=== PATIENT | female | born 1940 | race Caucasian/White ===

== ENCOUNTER 2018-07-24 23:04 | Observation (INO) ==
[2018-07-25 01:22] LABS: Baso # (Auto) 0.1 th/mm3 (0.0-0.2); Eos # (Auto) 0.1 th/mm3 (0.0-0.4); Eos % (Auto) 1.3 % (0.0-4.0); Hematocrit 34.9 % (35.0-46.0); Hemoglobin 12.4 gm/dL (11.6-15.3); Lymph # (Auto) 1.2 th/mm3 (1.0-4.8); Lymph % (Auto) 19.6 % (9.0-44.0); Mean Corpuscular HGB Conc 35.4 % (32.0-36.0); Mean Corpuscular Volume 104.5 fL (80.0-100.0); Mean Platelet Volume 7.2 fL (7.0-11.0); Mono # (Auto) 1.2 th/mm3 (0.0-0.9); Mono % (Auto) 19.5 % (0.0-8.0); Neut # (Auto) 3.7 th/mm3 (1.8-7.7); Neut % (Auto) 58.6 % (16.0-70.0); Platelet Count 247 th/mm3 (150-450); Red Blood Count 3.34 mil/mm3 (4.00-5.30); Red Cell Distribution Width 15.1 % (11.6-17.2); White Blood Count 6.2 th/mm3 (4.0-11.0)
[2018-07-25 01:34] LABS: Calcium 8.8 mg/dL (8.5-10.1); Carbon Dioxide 29.2 meq/L (21.0-32.0); INR 1.2 Ratio; Potassium 5.4 meq/L (3.5-5.1); Prothrombin Time 11.7 sec (9.8-11.6)
--- NOTE | 2018-07-25 01:53 | XR ---
EXAM DATE: 07/25/2018 1:48 AM EST AGE/SEX: 77 years / Female INDICATIONS: Shortness of breath. CLINICAL DATA: This is the patient's initial encounter. Patient reports that signs and symptoms have been present for 1 day and indicates a pain score of 0/10. MEDICAL/SURGICAL HISTORY: Non-responsive. Non-responsive. COMPARISON: . FINDINGS: Single AP view of the chest. The lungs are clear. Cardiomediastinal silhouette within nor mal limits. No evidence of pleural effusion or pneumothorax. CONCLUSION: No acute cardiopulmonary disease identified. Electronically signed by: Robert Doll MD 07/25/2018 1:51 AM EST
--- NOTE | 2018-07-25 01:56 | XR ---
EXAM DATE: 07/25/2018 1:51 AM EST AGE/SEX: 77 years / Female INDICATIONS: Right knee pain, swelling, and inability to straighten out. CLINICAL DATA: This is the patient's initial encounter. Patient reports that signs and symptoms have been present for 1 day and indicates a pain score of 10/10. MEDICAL/SURGICAL HISTORY: Non-responsive. Non-responsive. COMPARISON: . FINDINGS: 4 views of the right knee. Comminuted fracture of the distal femur is noted involving the distal meta physis and likely extending into the intercondylar region. There is impaction with up to 4 cm of bony overlap. Posterior displacement of the distal fragment measuring approximately 8 mm. Posterior angul ation of the distal fragment also noted. Large joint effusion. CONCLUSION: Comminuted impacted distal femur fracture. Electronically signed by: Robert Doll MD 07/25/2018 1:54 AM EST
--- NOTE | 2018-07-25 02:14 | ED ---
HPI General Chief Complaint: Extremity Injury, Lower Stated Complaint: Medical Time Seen by Provider: 07/24/18 23:57 Source: EMS Mode of arrival: EMS Limitations: other (Advanced dementia) History of Present Illness HPI Narrative: 77-year-old female came to the emergency room with history of injury to her right lower extremity by unknown mechanism. She is from senior living and has significant dementia. Patient was unable to give us any meaningful history. assisted did an x-ray of her femur and the diagnosis was impacted fracture of her distal femur. As per the senior living patient is bedbound. The nurse tried to contact her family and was unsuccessful to get any further history. The senior living staff who gave the report does not know the patient very well since this is her first night taking care of the patient. Related Data Home Medications Medication Instructions Recorded Confirmed amantadine HCl 100 mg PO DAILY 07/25/18 07/25/18 divalproex [Depakote] 1,000 mg PO HS 07/25/18 07/25/18 divalproex [Depakote] 500 mg PO DAILY 07/25/18 07/25/18 fenofibrate 160 mg PO HS 07/25/18 07/25/18 ferrous sulfate 325 mg PO TID 07/25/18 07/25/18 furosemide [Lasix] 40 mg PO DAILY 07/25/18 07/25/18 multivitamin 1 tab PO DAILY 07/25/18 07/25/18 Previous Rx's Medication Instructions Recorded calcium carbonate-vitamin D3 1 tab PO DAILY #30 tab 07/26/18 [Calcium 500 + D] potassium chloride 20 meq PO DAILY #0 tab 07/26/18 Allergies Allergy/AdvReac Type Severity Reaction Status Date / Time No Known Allergies Allergy Severe Uncoded 12/16/12 13:56 Review of Systems ROS Unobtainable ROS Unobtainable: unobtainable due to mental condition ROS: all other systems reviewed are negative [facility] Medical History Medical History Anxiety disorder, unspecified (Acute) Atelectasis (Acute) Bipolar disorder, unspecified (Acute) Chronic kidney disease (Acute) Edema, unspecified (Acute) Extrapyramidal and movement disorder, unspecified (Acute) GERD (gastroesophageal reflux disease) (Acute) Hyperlipidemia (Acute) Hypokalemia (Acute) Insomnia (Acute) Iron deficiency anemia (Acute) Schizophrenia, unspecified (Acute) Social History Social History Substance History: Unable to Obtain Smoking Status: Cognitive impairment How Often Do You Have a Drink Containing Alcohol: Unable to Obtain Recent Travel in [facility] within the Last 8 Weeks: No Recent Out of Country Travel within the Last 8 Weeks: No Immunization History Tetanus Immunization: Unable to Assess Exam Narrative Exam Narrative: GENERAL: Awake, confused from dementia, no obvious distress SKIN: Focused skin assessment warm/dry. HEAD: Atraumatic. Normocephalic. EYES: Pupils equal and round. No scleral icterus. No injection or drainage. ENT: No nasal bleeding or discharge. Mucous membranes pink and moist. NECK: Trachea midline. No JVD. CARDIOVASCULAR: Regular rate and rhythm. No murmur appreciated. RESPIRATORY: No accessory muscle use. Clear to auscultation. Breath sounds equal bilaterally. GASTROINTESTINAL: Abdomen soft, non-tender, nondistended. Hepatic and splenic margins not palpable. MUSCULOSKELETAL: No obvious deformities. No clubbing. No cyanosis. No edema. 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 Right knee joint is swollen and decreased range of motion due to the pain NEUROLOGICAL: Awake but confused. No obvious cranial nerve deficits. Motor grossly within normal limits. PSYCHIATRIC: Appropriate mood and affect; poor insight and judgment. Course Initial Documented Vital Signs Temperature 98.6 F 07/24/18 23:25 Pulse Rate 76 07/24/18 23:25 Respiratory Rate 18 07/24/18 23:25 Blood Pressure 115/65 07/24/18 23:25 Pulse Oximetry 96 07/24/18 23:25 Last Documented Vital Signs Temperature 97.6 F 07/26/18 08:00 Pulse Rate 82 07/26/18 08:00 Respiratory Rate 20 07/26/18 08:00 Blood Pressure 123/65 07/26/18 08:00 Pulse Oximetry 96 07/26/18 08:00 Medical Decision Making MDM Narrative Medical decision making narrative: 2:13 AM the x-ray of the knee joint was repeated and showed shows the impacted fracture. I have ordered for a knee immobilizer. Patient will need admission. Waiting for the hospitalist. Medical Screen Exam Complete: Yes Emergency Medical Condition: Yes Lab Data Result diagrams: 07/26/18 04:44 07/26/18 04:44 Lab Results 07/25/18 07/25/18 07/25/18 Range/Units 00:55 00:55 00:55 WBC 6.2 (4.0-11.0) th/mm3 RBC 3.34 L (4.00-5.30) mil/mm3 Hgb 12.4 (11.6-15.3) gm/dL Hct 34.9 L (35.0-46.0) % MCV 104.5 H (80.0-100.0) fL MCH 37.0 H (27.0-34.0) pg MCHC 35.4 (32.0-36.0) % RDW 15.1 (11.6-17.2) % Plt Count 247 (150-450) th/mm3 MPV 7.2 (7.0-11.0) fL Neut % (Auto) 58.6 (16.0-70.0) % Lymph % (Auto) 19.6 (9.0-44.0) % [place] % (Auto) 19.5 H (0.0-8.0) % Eos % (Auto) 1.3 (0.0-4.0) % Baso % (Auto) 1.0 (0.0-2.0) % Neut # (Auto) 3.7 (1.8-7.7) th/mm3 Lymph # (Auto) 1.2 (1.0-4.8) th/mm3 [place] # (Auto) 1.2 H (0.0-0.9) th/mm3 Eos # (Auto) 0.1 (0.0-0.4) th/mm3 Baso # (Auto) 0.1 (0.0-0.2) th/mm3 WBC Differential . Differential Comment Auto diff final PT 11.7 H (9.8-11.6) sec INR 1.2 Ratio Sodium 140 (136-145) meq/L Potassium 5.4 H (3.5-5.1) meq/L Chloride 106 (98-107) meq/L Carbon Dioxide 29.2 (21.0-32.0) meq/L Anion Gap 5 (5-15) meq/L BUN 35 H (7-18) mg/dL Creatinine 0.66 (0.50-1.00) mg/dL Estimated GFR 87 L (>89) mL/min Random Glucose 87 (74-106) mg/dL Calcium 8.8 (8.5-10.1) mg/dL Total Bilirubin (0.2-1.0) mg/dL AST (15-37) U/L ALT (10-53) U/L Alkaline Phosphatase (45-117) U/L Total Protein (6.4-8.2) g/dL Albumin (3.4-5.0) g/dL Blood Type Blood Type Recheck Antibody Screen 07/25/18 07/26/18 07/26/18 Range/Units 00:58 04:44 04:44 WBC 5.2 (4.0-11.0) th/mm3 RBC 3.08 L (4.00-5.30) mil/mm3 Hgb 11.1 L (11.6-15.3) gm/dL Hct 32.1 L (35.0-46.0) % MCV 104.2 H (80.0-100.0) fL MCH 36.0 H (27.0-34.0) pg MCHC 34.6 (32.0-36.0) % RDW 15.0 (11.6-17.2) % Plt Count 200 (150-450) th/mm3 MPV 7.2 (7.0-11.0) fL Neut % (Auto) 44.3 (16.0-70.0) % Lymph % (Auto) 30.7 (9.0-44.0) % [place] % (Auto) 22.0 H (0.0-8.0) % Eos % (Auto) 2.2 (0.0-4.0) % Baso % (Auto) 0.8 (0.0-2.0) % Neut # (Auto) 2.3 (1.8-7.7) th/mm3 Lymph # (Auto) 1.6 (1.0-4.8) th/mm3 [place] # (Auto) 1.1 H (0.0-0.9) th/mm3 Eos # (Auto) 0.1 (0.0-0.4) th/mm3 Baso # (Auto) 0.0 (0.0-0.2) th/mm3 WBC Differential . Differential Comment Auto diff final PT (9.8-11.6) sec INR Ratio Sodium 140 (136-145) meq/L Potassium 4.2 D (3.5-5.1) meq/L Chloride 108 H (98-107) meq/L Carbon Dioxide 27.2 (21.0-32.0) meq/L Anion Gap 5 (5-15) meq/L BUN 32 H (7-18) mg/dL Creatinine 0.63 (0.50-1.00) mg/dL Estimated GFR Greater than 89 (>89) mL/min Random Glucose 75 (74-106) mg/dL Calcium 8.6 (8.5-10.1) mg/dL Total Bilirubin 0.6 (0.2-1.0) mg/dL AST 25 (15-37) U/L ALT 12 (10-53) U/L Alkaline Phosphatase 321 H (45-117) U/L Total Protein 4.9 L (6.4-8.2) g/dL Albumin 1.8 L (3.4-5.0) g/dL Blood Type AB Positive Blood Type Recheck Required Antibody Screen Negative Imaging Data Radiologist's impression: Chest X-Ray 07/25/18 00:46 CONCLUSION: No acute cardiopulmonary disease identified. Knee X-Ray 07/25/18 00:46 CONCLUSION: Comminuted impacted distal femur fracture. Discharge Plan Discharge Disposition Patient Disposition: ED Admit(ED Internal Use Only) Discharge Condition Condition: Good Discharge Order Discharge Orders: Discharge Order (Routine); Ordered 07/26/18 Ordered By: Fam Fierro ED Use Only Admit Order (Routine); Ordered 07/25/18 Ordered By: Kalpana Marie Physicians Team ED Provider: Kalpana Marie Primary Care Provider: Kervin Delgado V Attending Provider: Zion Sue Other Providers: Seb eSrna ; Simon Bear ; [facility] Status ED Status: Left Department Discharge Information Discharge Date/Time: 07/25/18 04:28
[2018-07-25] MEDS ORDERED: Acetaminophen 325 MG Tablet PO PRN (03:06)
[2018-07-25] MEDS ORDERED: Bisacodyl 10 MG Supp RECTAL PRN (03:06)
--- NOTE | 2018-07-25 05:40 | P.HPIM ---
History of Present Illness Service: [facility] Primary Care Physician: Kervin Delgado MD Chief Complaint: right knee pain History of Present Illness: 77 y/o female with a history of dementia, HLD, CKD, anxiety, ABDOUL, and bipolar was sent to the ER after being diagnosed with a femur fracture. The story is very vague and no one seems to know what happened. The retirement did an x-ray of her femur and she was found to have an impacted fracture of her right distal femur. As per the retirement patient is bedbound. The ER nurse tried to contact her family and was unsuccessful to get any further history. Per ER the retirement staff who gave the report does not know the patient very well since this is her first night taking care of the patient. Cause of this fracture remains unknown and due to patients dementia patient is unable to state what happened. Upon examination patient is pleasantly confused only able to state name and , denies any pain at this time. ROS is limited. Inpatient Certification Inpatient Certification: I certify that the inpatient services were ordered in accordance with Medicare regulations governing the order. This includes certification that hospital inpatient services are reasonable and necessary and in the case of services not specified as inpatient-only under 42 CFR 419.22(n), that they are appropriately provided as inpatient services in accordance to with the 2-midnight benchmark under 43 CFR 412.3(e) Review of Systems ROS Unobtainable: unobtainable due to mental status [facility] Medical History Medical History Anxiety disorder, unspecified (Acute) Atelectasis (Acute) Bipolar disorder, unspecified (Acute) Chronic kidney disease (Acute) Edema, unspecified (Acute) Extrapyramidal and movement disorder, unspecified (Acute) GERD (gastroesophageal reflux disease) (Acute) Hyperlipidemia (Acute) Hypokalemia (Acute) Insomnia (Acute) Iron deficiency anemia (Acute) Schizophrenia, unspecified (Acute) Family History Family History Other Family history unknown Social History Social History Substance History: Unable to Obtain Smoking Status: Cognitive impairment How Often Do You Have a Drink Containing Alcohol: Unable to Obtain Recent Travel in [facility] within the Last 8 Weeks: No Recent Out of Country Travel within the Last 8 Weeks: No Immunization History Tetanus Immunization: Unable to Assess Medications and Allergies Allergies Allergy/AdvReac Type Severity Reaction Status Date / Time No Known Allergies Allergy Severe Uncoded 12/16/12 13:56 Home Medications Medication Instructions Recorded Confirmed Type amantadine HCl 100 mg PO DAILY 07/25/18 07/25/18 History divalproex [Depakote] 1,000 mg PO HS 07/25/18 07/25/18 History divalproex [Depakote] 500 mg PO DAILY 07/25/18 07/25/18 History fenofibrate 160 mg PO HS 07/25/18 07/25/18 History ferrous sulfate 325 mg PO TID 07/25/18 07/25/18 History furosemide [Lasix] 40 mg PO DAILY 07/25/18 07/25/18 History multivitamin 1 tab PO DAILY 07/25/18 07/25/18 History potassium chloride 40 meq PO DAILY 07/25/18 07/25/18 History Active Medications: Active Medications Acetaminophen (Tylenol) 650 mg PO Q4H PRN PRN Reason: Temp > 100.4 Al Hydroxide/Mg Hydroxide (Milk Of Magnesia Liq) 30 ml PO Q12H PRN PRN Reason: Mild Constipation Amantadine HCl (Symmetrel) 100 mg PO DAILY [facility] Bisacodyl (Dulcolax Supp) 10 mg RECTAL DAILY PRN PRN Reason: SEVERE CONSITIPATION Divalproex Sodium (Depakote Dr) 500 mg PO DAILY [facility] Fenofibrate (Tricor) 145 mg PO HS [facility] Sodium Chloride (Ns Inj) 1,000 mls @ 42 mls/hr IV.CONT .[id number] [facility] Lactulose (Lactulose Liq) 30 ml PO DAILY PRN PRN Reason: SEVERE CONSITIPATION Ondansetron HCl (Zofran Inj) 4 mg IV.PUSH Q6H PRN PRN Reason: NAUSEA OR VOMITING Senna/Docusate Sodium (Ruthann-Colace) 1 tab PO BID [facility] Sennosides (Senokot) 17.2 mg PO Q12H PRN PRN Reason: Moderate Constipation Sodium Chloride (Ns Flush) 2 ml IV.FLUSH BID [facility] Sodium Chloride (Ns Flush) 2 ml IV.FLUSH PRN PRN PRN Reason: FLUSH AFTER USING IV ACCESS Physical Exam Vital signs: Last Vital Signs Temp 97.5 F L 07/25/18 04:05 Pulse 91 H 07/25/18 04:05 Resp 18 07/25/18 04:05 BP 120/71 07/25/18 04:05 Pulse Ox 95 07/25/18 04:05 Intake & Output 07/22/18 07/23/18 07/24/18 07/25/18 06:59 06:59 06:59 06:59 Weight 68.039 kg Results Labs CBC & Chem 7: 07/25/18 00:55 07/25/18 00:55 Imaging Impressions Chest X-Ray 07/25/18 00:46 CONCLUSION: No acute cardiopulmonary disease identified. Knee X-Ray 07/25/18 00:46 CONCLUSION: Comminuted impacted distal femur fracture. Caprini VTE Risk Assessment Caprini VTE Risk Assessment: Moderate/High Risk (score >= 2) Caprini Risk Assessment Model: Point Value = 1 Point Value = 2 Point Value = 3 Point Value = 5 Age 41-60 Minor surgery BMI > 25 kg/m2 Swollen legs Varicose veins or History of unexplained or recurrent spontaneous Oral contraceptives or hormone replacement Sepsis (< 1 month) Serious lung disease, including pneumonia (< 1 month) Abnormal pulmonary function Acute myocardial infarction Congestive heart failure (< 1 month) History of inflammatory bowel disease Medical patient at bed rest Age 61-74 Arthroscopic surgery Major open surgery (> 45 min) Laparoscopic surgery (> 45 min) Malignancy Confined to bed (> 72 hours) Immobilizing plaster cast Central venous access Age >= 75 History of VTE Family history of VTE Factor V Leiden Prothrombin [id number] Lupus anticoagulant Anticardiolipin antibodies Elevated serum homocysteine Heparin-induced thrombocytopenia Other congenital or acquired thrombophilia Stroke (< 1 month) Elective arthroplasty Hip, pelvis, or leg fracture Acute spinal cord injury (< 1 month) Prophylaxis Regimen: Total Risk Factor Score Risk Level Prophylaxis Regimen 0-1 Low Early ambulation 2 Moderate Order ONE of the following: *Sequential Compression Device (SCD) *Heparin 5000 units SQ BID 3-4 Higher Order ONE of the following medications: *Heparin 5000 units SQ TID *Enoxaparin/Lovenox 40 mg SQ daily (WT < 150 kg, CrCl > 30 mL/min) *Enoxaparin/Lovenox 30 mg SQ daily (WT < 150 kg, CrCl > 10-29 mL/min) *Enoxaparin/Lovenox 30 mg SQ BID (WT < 150 kg, CrCl > 30 mL/min) AND/OR *Sequential Compression Device (SCD) 5 or more Highest Order ONE of the following medications: *Heparin 5000 units SQ TID (Preferred with Epidurals) *Enoxaparin/Lovenox 40 mg SQ daily (WT < 150 kg, CrCl > 30 mL/min) *Enoxaparin/Lovenox 30 mg SQ daily (WT < 150 kg, CrCl > 10-29 mL/min) *Enoxaparin/Lovenox 30 mg SQ BID (WT < 150 kg, CrCl > 30 mL/min) AND *Sequential Compression Device (SCD) Assessment and Plan Plan 77 y/o female with a history of dementia, HLD, CKD, anxiety, ABDOUL, and bipolar was sent to the ER after being diagnosed with a femur fracture. Femur fracture Knee x ray reviewed and showed a comminuted impacted distal femur fracture and large joint effusion -Consult orthopedics -OT/PT -Pain management as needed -CKS unable to be applied in ER, orthotist/prosthetist to attempt bipolar/anziety, chronic -resume home medications DVT prophylaxis: SCD to non affected leg
--- NOTE | 2018-07-25 06:53 | P.CONOP ---
[facility] Orthopedics Consult Note - [facility] Consult date: 07/25/18 Chief complaint: distal femure fracture Narrative: Danita is a 77-year-old female. She has multiple medical problems including dementia, kidney disease, anxiety, bipolar disorder, and osteoporosis. She lives in a care home. She is reportedly bedbound and nonambulatory. There are is no clear reported history of injury. She had x-rays taken at the care home which revealed a right distal femur fracture. She was brought to [facility] for further treatment. Patient is unable to give any significant history. She does complain of right leg pain. She is unable to give any history regarding her injury. Review of Systems Review of systems, family history, social history, and past medical history are unobtainable from patient secondary to dementia PMFSH - History History Provided By: Medical Record - Medical / Surgical Hx Neg / Unobtainable Medical Problems Denied: Unable to Obtain - Medical History Medical History: Medical History (Last Reviewed 07/25/18 @ 06:50 by Simon Bear MD) Anxiety disorder, unspecified Atelectasis Bipolar disorder, unspecified Chronic kidney disease Edema, unspecified Extrapyramidal and movement disorder, unspecified GERD (gastroesophageal reflux disease) Hyperlipidemia Hypokalemia Insomnia Iron deficiency anemia Schizophrenia, unspecified - Family History Family History: Family History (Last Reviewed 07/25/18 @ 05:43 by ELIO Hdz) Other Family history unknown - Social History I have reviewed the patient's Social History: Yes - Tobacco History Smoking Status: Cognitive impairment - Alcohol History How Often Do You Have a Drink Containing Alcohol: Unable to Obtain - Substance Use History Substance History: Unable to Obtain - Travel History Recent Travel in the [place] Within the Last 8 Weeks: No Recent Travel Out of the Country Within the Last 8 Weeks: No - Immunization History Tetanus Immunization: Unable to Assess Medications and Allergies Active Medications: Active Medications Acetaminophen (Tylenol) 650 mg PO Q4H PRN PRN Reason: Temp > 100.4 Al Hydroxide/Mg Hydroxide (Milk Of Magnesia Liq) 30 ml PO Q12H PRN PRN Reason: Mild Constipation Amantadine HCl (Symmetrel) 100 mg PO DAILY [facility]IM[facility] Bisacodyl (Dulcolax Supp) 10 mg RECTAL DAILY PRN PRN Reason: SEVERE CONSITIPATION Divalproex Sodium (Depakote Dr) 500 mg PO DAILY MARIMAR Fenofibrate (Tricor) 145 mg PO HS [facility] Sodium Chloride (Ns Inj) 1,000 mls @ 42 mls/hr IV.CONT .[id number] MARIMAR Lactulose (Lactulose Liq) 30 ml PO DAILY PRN PRN Reason: SEVERE CONSITIPATION Ondansetron HCl (Zofran Inj) 4 mg IV.PUSH Q6H PRN PRN Reason: NAUSEA OR VOMITING Senna/Docusate Sodium (Ruthann-Colace) 1 tab PO BID [facility] Sennosides (Senokot) 17.2 mg PO Q12H PRN PRN Reason: Moderate Constipation Sodium Chloride (Ns Flush) 2 ml IV.FLUSH BID [facility]IMAR Sodium Chloride (Ns Flush) 2 ml IV.FLUSH PRN PRN PRN Reason: FLUSH AFTER USING IV ACCESS Allergies Allergy/AdvReac Type Severity Reaction Status Date / Time No Known Allergies Allergy Severe Uncoded 12/16/12 13:56 Home Medications Medication Instructions Recorded Confirmed Type amantadine HCl 100 mg PO DAILY 07/25/18 07/25/18 History divalproex [Depakote] 1,000 mg PO HS 07/25/18 07/25/18 History divalproex [Depakote] 500 mg PO DAILY 07/25/18 07/25/18 History fenofibrate 160 mg PO HS 07/25/18 07/25/18 History ferrous sulfate 325 mg PO TID 07/25/18 07/25/18 History furosemide [Lasix] 40 mg PO DAILY 07/25/18 07/25/18 History multivitamin 1 tab PO DAILY 07/25/18 07/25/18 History potassium chloride 40 meq PO DAILY 07/25/18 07/25/18 History Exam Vital signs: Vital Signs 07/24/18 23:25 07/25/18 04:05 Temperature 98.6 F 97.5 F L Pulse Rate 76 91 H Respiratory Rate 18 18 Blood Pressure 115/65 120/71 Pulse Oximetry 96 95 Intake & Output 07/24/18 07/24/18 07/25/18 06:59 18:59 06:59 Intake Total 0 / 0 Balance 0 / 0 Weight 68 kg Intake: Oral 0 / 0 Other: # Voids 0 # Bowel Movements 0 Narrative: Donnaebsyeda is a 77-year-old female General: Awake but confused. No acute distress. Appears well-developed well- nourished Head: Normocephalic, atraumatic pupils are equal Neck: Soft, nontender, trachea midline Abdomen: Soft, nondistended Examination of right arm reveals no pain or deformity with shoulder, elbow, or wrist motion. Skin is intact. Radial pulse is palpable. Normal capillary refill in fingers. Sensation is intact in radial, ulnar, and median nerve distributions. Hand Buffing Wheel Former strength is +5. No lymphadenopathy noted. Examination of left arm reveals no pain or deformity with shoulder, elbow, or wrist motion. Skin is intact. Radial pulse is palpable. Normal capillary refill in fingers. Sensation is intact in radial, ulnar, and median nerve distributions. Hand Buffing Wheel Former strength is +5. No lymphadenopathy noted. Examination of left lower extremity reveals no pain or deformity with hip, knee , or ankle motion. Skin is intact. Sensation is intact in left foot. Dorsalis pedis pulse is palpable. Normal capillary refill and feet. Thigh and calf compartments are soft. No lymphadenopathy noted. Examination of right lower extremity no tenderness or deformity around her hip or ankle. She does have swelling and bruising around her knee. She has pain with knee motion. She is comfortable with her knee flexed approximately 40 degrees. Skin is intact with no visible skin tension. Sensation is intact in right foot. Dorsalis pedis pulse is palpable. Normal capillary refill and feet. Thigh and calf compartments are soft. No lymphadenopathy noted. Results - Labs Result Diagrams: 07/25/18 00:55 07/25/18 00:55 Labs: Laboratory Results - last 24 hr 07/25/18 07/25/18 07/25/18 00:55 00:55 00:55 WBC 6.2 RBC 3.34 L Hgb 12.4 Hct 34.9 L MCV 104.5 H MCH 37.0 H MCHC 35.4 RDW 15.1 Plt Count 247 MPV 7.2 Neut % (Auto) 58.6 Lymph % (Auto) 19.6 [place] % (Auto) 19.5 H Eos % (Auto) 1.3 Baso % (Auto) 1.0 Neut # (Auto) 3.7 Lymph # (Auto) 1.2 [place] # (Auto) 1.2 H Eos # (Auto) 0.1 Baso # (Auto) 0.1 WBC Differential . Differential Comment Auto diff final PT 11.7 H INR 1.2 Sodium 140 Potassium 5.4 H Chloride 106 Carbon Dioxide 29.2 Anion Gap 5 BUN 35 H Creatinine 0.66 Estimated GFR 87 L Random Glucose 87 Calcium 8.8 Blood Type Blood Type Recheck Antibody Screen 07/25/18 00:58 WBC RBC Hgb Hct MCV MCH MCHC RDW Plt Count MPV Neut % (Auto) Lymph % (Auto) [place] % (Auto) Eos % (Auto) Baso % (Auto) Neut # (Auto) Lymph # (Auto) [place] # (Auto) Eos # (Auto) Baso # (Auto) WBC Differential Differential Comment PT INR Sodium Potassium Chloride Carbon Dioxide Anion Gap BUN Creatinine Estimated GFR Random Glucose Calcium Blood Type AB Positive Blood Type Recheck Required Antibody Screen Negative - Diagnostic results Imaging: Impressions Chest X-Ray 07/25/18 00:46 CONCLUSION: No acute cardiopulmonary disease identified. Knee X-Ray 07/25/18 00:46 CONCLUSION: Comminuted impacted distal femur fracture. Assessment and Plan - Assessment and Plan Danita is a 77-year-old female with multiple medical problems. She has significant dementia. No family has been identified yet for patient. She has a mildly displaced right distal femur fracture. She is reportedly nonambulatory and is essentially bedbound. Given her overall medical condition I would recommend nonoperative treatment this time. She will be placed into a hinged range of motion knee brace locked at approximately 40 degrees to help stabilize her fracture. She will need to be strictly nonweightbearing. I would recommend calcium and vitamin D supplementation. Physical therapy will be consulted. She will need SCD and HANNAH hose for left leg for DVT prophylaxis. A mid-level provider in my office (nurse practitioner or physician trade sales assistant) may see this patient on follow-up visits and continue to implement the objectives of this plan including: Starting or adjusting medications, injections , cast application, orthotics, brace application, physical therapy, radiological studies (including x-ray, MRI, CT, ultrasound, bone scan), vascular studies, neurologic studies, specialist consultation, and proceeding with surgical management, as appropriate.
[2018-07-25] MEDS: Sod Chloride 0.9% Inj 1,000 ML IV.CONT SCH (08:31)
[2018-07-25] MEDS: Senna/Docusate Sodium 8.6/50 MG Tablet PO SCH ×2 (10:58→21:30)
[2018-07-25] MEDS: Divalproex 500 MG DR Tablet PO SCH (10:58)
[2018-07-25] MEDS: Amantadine 100 MG Capsule PO SCH (10:59)
[2018-07-25] MEDS ORDERED: Fenofibrate 145 MG Tablet PO SCH (21:00)
[2018-07-26 02:42] VITALS: O2SAT 96
[2018-07-26] MEDS: Sod Chloride 0.9% Inj 1,000 ML IV.CONT SCH (03:15)
[2018-07-26 05:34] LABS: Baso % (Auto) 0.8 % (0.0-2.0); Eos # (Auto) 0.1 th/mm3 (0.0-0.4); Eos % (Auto) 2.2 % (0.0-4.0); Hematocrit 32.1 % (35.0-46.0); Hemoglobin 11.1 gm/dL (11.6-15.3); Lymph # (Auto) 1.6 th/mm3 (1.0-4.8); Lymph % (Auto) 30.7 % (9.0-44.0); Mean Corpuscular HGB Conc 34.6 % (32.0-36.0); Mean Corpuscular Volume 104.2 fL (80.0-100.0); Mean Platelet Volume 7.2 fL (7.0-11.0); Mono # (Auto) 1.1 th/mm3 (0.0-0.9); Neut # (Auto) 2.3 th/mm3 (1.8-7.7); Neut % (Auto) 44.3 % (16.0-70.0); Platelet Count 200 th/mm3 (150-450); Red Blood Count 3.08 mil/mm3 (4.00-5.30); White Blood Count 5.2 th/mm3 (4.0-11.0)
[2018-07-26 06:09] LABS: Alanine Aminotransferase 12 U/L (10-53); Albumin 1.8 g/dL (3.4-5.0); Alkaline Phosphatase 321 U/L (45-117); Anion Gap 5 meq/L (5-15); Aspartate Aminotransferase 25 U/L (15-37); Blood Urea Nitrogen 32 mg/dL (7-18); Calcium 8.6 mg/dL (8.5-10.1); Carbon Dioxide 27.2 meq/L (21.0-32.0); Chloride 108 meq/L (98-107); Glomerular Filtration Rate Greater Than 89 mL/min (>89); Glucose,Random 75 mg/dL (74-106); Potassium 4.2 meq/L (3.5-5.1); Sodium 140 meq/L (136-145); Total Protein 4.9 g/dL (6.4-8.2)
[2018-07-26] MEDS: Amantadine 100 MG Capsule PO SCH (08:59)
[2018-07-26] MEDS: Divalproex 500 MG DR Tablet PO SCH (08:59)
[2018-07-26] MEDS: Senna/Docusate Sodium 8.6/50 MG Tablet PO SCH (08:59)
--- NOTE | 2018-07-26 08:59 | P.DS ---
Date of admission: 07/25/18 03:06 Primary care physician: Kervin Delgado MD Attending physician on discharge: Zion Sue Anticipated date of discharge: 07/26/18 Brief History from admission: 77 y/o female with a history of dementia, HLD, CKD, anxiety, ABDOUL, and bipolar was sent to the ER after being diagnosed with a femur fracture. The story is very vague and no one seems to know what happened. The custodial did an x- ray of her femur and she was found to have an impacted fracture of her right distal femur. As per the custodial patient is bedbound. The ER nurse tried to contact her family and was unsuccessful to get any further history. Per ER the custodial staff who gave the report does not know the patient very well since this is her first night taking care of the patient. Cause of this fracture remains unknown and due to patients dementia patient is unable to state what happened. Upon examination patient is pleasantly confused only able to state name and , denies any pain at this time. ROS is limited. DS: Medications - Discharge Medications Prescriptions: calcium carbonate-vitamin D3 [Calcium 500 + D] 1 tab PO DAILY #30 tab DS: Summary Hospital Course: 77-year-old female with past medical history significant for CKD, bipolar disorder, anxiety, GERD, hyperlipidemia, insomnia, iron deficiency anemia and dementia who presented to the emergency department on 07/25 due to right femur fracture. She is from a long-term care facility and the exact details on how fracture occurred or not clear. Attempt to reach family was unsuccessful for further history. Patient was unable to provide any history due to dementia. Imaging revealed can comminuted impacted distal femur fracture. Orthopedic services was consulted for further evaluation. Patient was seen and evaluated by Dr. Coronel who recommended nonoperative treatment with placement of hinged range of motion knee brace locked at approximately 40 degrees to stabilize fracture. Strict nonweightbearing with recommendations for calcium and vitamin D supplementation. She was also seen and evaluated by physical therapy who recommended long-term care facility. She was seen and examined early this morning sitting up in bed in no acute distress. She denies any pain or discomfort at the moment. She denies any cough, shortness of breath , nausea, vomiting, headache or dizziness. Right knee is in a brace, normal sensation, movement, capillary refill. Nurses report any acute events or concerns. Plans to discharge patient back to long-term care facility. - Time Spent with Patient Total time spent providing and/or coordinating discharge services: Less than 30 minutes Exam Vital signs: Vital Signs 07/25/18 12:00 07/25/18 16:00 07/25/18 20:00 Temperature 98 F 97.6 F 97.8 F Pulse Rate 86 81 88 Respiratory Rate 16 18 18 Blood Pressure 131/67 122/65 131/71 Pulse Oximetry 96 97 97 07/26/18 00:00 Temperature 98.3 F Pulse Rate 83 Respiratory Rate 18 Blood Pressure 127/78 Pulse Oximetry 96 Intake & Output 07/25/18 07/26/18 07/26/18 18:59 06:59 18:59 Weight 65.8 kg Other: # Voids 3 2 Narrative: GENERAL: Well-nourished, well-developed elderly female sitting up in bed in no acute distress. SKIN: Warm and dry. HEAD: Atraumatic. Normocephalic. EYES: Pupils equal/round. No scleral icterus. No injection or drainage. ENT: No nasal bleeding or discharge. Mucous membranes pink and moist. NECK: Trachea midline. CARDIOVASCULAR: Regular rate and rhythm. RESPIRATORY: No accessory muscle use. Clear to auscultation. Breath sounds equal bilaterally. GASTROINTESTINAL: Abdomen soft, non-tender, nondistended. + Bowel sounds MUSCULOSKELETAL: Extremities without clubbing, cyanosis, or edema. Right knee in brace in place, sensation intact, + pedal pulses, + toe movement. NEUROLOGICAL: Awake, alert, oriented x1. No obvious cranial nerve deficits. Motor grossly within normal limits, with exception of RLE due to brace. Normal speech. PSYCHIATRIC:Poor insight and judgment. Results Procedures completed during hospitalization: None Labs on day of discharge: Labs from last 24 hours 07/26/18 07/26/18 04:44 04:44 WBC 5.2 RBC 3.08 L Hgb 11.1 L Hct 32.1 L MCV 104.2 H MCH 36.0 H MCHC 34.6 RDW 15.0 Plt Count 200 MPV 7.2 Neut % (Auto) 44.3 Lymph % (Auto) 30.7 [place] % (Auto) 22.0 H Eos % (Auto) 2.2 Baso % (Auto) 0.8 Neut # (Auto) 2.3 Lymph # (Auto) 1.6 [place] # (Auto) 1.1 H Eos # (Auto) 0.1 Baso # (Auto) 0.0 WBC Differential . Differential Comment Auto diff final Sodium 140 Potassium 4.2 D Chloride 108 H Carbon Dioxide 27.2 Anion Gap 5 BUN 32 H Creatinine 0.63 Estimated GFR Greater than 89 Random Glucose 75 Calcium 8.6 Total Bilirubin 0.6 AST 25 ALT 12 Alkaline Phosphatase 321 H Total Protein 4.9 L Albumin 1.8 L - Impressions ITS Impressions Chest X-Ray 07/25/18 00:46 CONCLUSION: No acute cardiopulmonary disease identified. Knee X-Ray 07/25/18 00:46 CONCLUSION: Comminuted impacted distal femur fracture. Discharge Plan - Discharge Disposition Patient Disposition: Discharge to SNF - Discharge Condition Condition: Good - Discharge Order Discharge Orders: Discharge Order (Routine); Ordered 07/26/18 Ordered By: Fam Fierro ED Use Only Admit Order (Routine); Ordered 07/25/18 Ordered By: Kalpana Marie - Physicians Team Primary Care Provider: Kervin Delgado V Attending Provider: Zion Sue Other Providers: Seb Serna MD ; Simon Coronel MD ; [facility]
[2018-07-26 09:10] VITALS: BP 123/65; PULSE 82; RESP 20; TEMP 97.6
== END 2018-07-26 13:19 ==
LOC: NEPE 23:04 → NEDA 07-25 03:06 → INTOOBSV 07-25 03:06 → N06 07-25 03:58
PROVIDERS: ADMIT Internal Medicine; ATTEND Internal Medicine